=== PATIENT | male | born 1995 | race Caucasian/White ===

== ENCOUNTER 2018-06-06 12:08 | Emergency (ER) | payer BC ==
[2018-06-06 12:40] VITALS: BP 138/90; PULSE 80; O2SAT 99
--- NOTE | 2018-06-06 12:47 | ERPHSYRPT ---
- History of Present Illness Time Seen by Provider: 06/06/18 12:41 Source: patient Exam Limitations: no limitations Patient Subjective Stated Complaint: alert and oriented with no difficulty walking to the room. able to get undressed with no difficulty. states for the past 1 month he has had neck upper back, lower back. no specific c/o has had numerous testing from several hospitals that has been negative. seen at [facility] yesterday for the same. no injuries. Triage Nursing Assessment: alert and oriented with no difficulty walking to the room. able to get undressed with no difficulty. states for the past 1 month he has had neck upper back, lower back. no specific c/o has had numerous testing from several hospitals that has been negative. seen at [facility] yesterday for the same. no injuries. Physician History: 23-year-old white male previously healthy he arrives with complaint of pain on the left side of his head pain in his neck pain in his lower back which is somewhat vague uses been going on for approximately 4 weeks he states that [facility] at [facility] last time at [place] was yesterday. He states that he has had some vague pain he states that he was initially seen by [facility] and the for neck pain he states he had an x-ray of his neck pain which he states that he was told there were no acute changes he states he was referred to [facility] who did an extensive workup including CTs. He states he has been seen several times at [facility] and told that they think that he has some anxiety. 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 Is not having any problems moving patient has no fever he is not short of breath no chest pain. He has no focal symptoms other than pain on his left side of his body. He has been placed on Ativan 2 times he filled 15 1 mg tablets on May 14, 2018 he filled another 30 tablets on May 23, 2018. He states that after being seen yesterday at [facility] and [place] he was placed on Norflex. Patient denies suicidal or homicidal ideation Past medical history is negative. Past surgical history is negative. Social history patient denies tobacco alcohol or illicit drug use. He does state that he has used marijuana in the past. Timing/Duration: other (symptoms for a month) Severity: moderate Modifying Factors: Improves With: other (patient is on Ativan at home, recently has been placed on Norflex) Associated Symptoms: other (pain on left side of head and face pain on the left side of neck pain in his back (low back) for one month), No nausea, No vomiting , No abdominal pain, No shortness of breath, No heartburn, No diaphoresis, No cough, No chills, No chest pain, No fever, No headaches, No loss of appetite, No malaise, No rash, No syncope, No seizure, No weakness Immunizations Up to Date: Yes - Review of Systems Constitutional: No Fever, No Chills Eyes: No Symptoms Ears, Nose, & Throat: No Symptoms Respiratory: No Cough, No Dyspnea Cardiac: No Chest Pain, No Edema, No Syncope Abdominal/Gastrointestinal: No Abdominal Pain, No Nausea, No Vomiting, No Diarrhea Genitourinary Symptoms: No Dysuria Musculoskeletal: Back Pain (low back pain left-sided), Neck Pain (Left-sided neck pain) Skin: No Rash Neurological: Other (pain on left side of head and face), No Dizziness, No Focal Weakness, No Gait Changes, No Headache, No Irritability, No Lethargy, No Paralysis, No Parasthesia, No Seizure, No Sensory Changes, No Speech Changes, No Tics, No Tremors, No Vertigo Psychological: No Symptoms Endocrine: No Symptoms All Other Systems: Reviewed and Negative - Past Medical History Pertinent Past Medical History: Yes Neurological History: No Pertinent History ENT History: No Pertinent History Cardiac History: No Pertinent History Respiratory History: No Pertinent History Endocrine Medical History: No Pertinent History Musculoskeletal History: No Pertinent History GI Medical History: No Pertinent History History: No Pertinent History Psycho-Social History: Anxiety Male Reproductive Disorders: No Pertinent History - Past Surgical History Past Surgical History: No Neuro Surgical History: No Pertinent History Cardiac: No Pertinent History Respiratory: No Pertinent History Gastrointestinal: No Pertinent History Genitourinary: No Pertinent History Musculoskeletal: No Pertinent History Male Surgical History: No Pertinent History - Social History Smoking Status: Never smoker Exposure to second hand smoke: No Drug Use: marijuana Patient Lives Alone: No - Nursing Vital Signs Nursing Vital Signs: Initial Vital Signs Temperature 97.5 F 06/06/18 12:27 Pulse Rate 80 04/25/19 12:27 Respiratory Rate 18 06/06/18 12:27 Blood Pressure 138/90 06/06/18 12:27 O2 Sat by Pulse Oximetry 99 06/06/18 12:27 Pain Scale Pain Intensity 4 - Physical Exam General Appearance: no apparent distress, alert Eye Exam: PERRL/EOMI, eyes nml inspection Ears, Nose, Throat Exam: normal ENT inspection, TMs normal, pharynx normal, moist mucous membranes Neck Exam: normal inspection, non-tender, supple, full range of motion Respiratory Exam: normal breath sounds, lungs clear, No respiratory distress Cardiovascular Exam: regular rate/rhythm, normal heart sounds, normal peripheral pulses, capillary refill <2 sec Gastrointestinal/Abdomen Exam: soft, normal bowel sounds, No tenderness, No mass Back Exam: normal inspection, normal range of motion, No CVA tenderness, No vertebral tenderness Extremity Exam: normal inspection, normal range of motion, pelvis stable Neurologic Exam: alert, oriented x 3, cooperative, 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, normal mood/affect, nml cerebellar function, nml station & gait, sensation nml, other (patient is alert, oriented 3, cranial nerves II through XII intact, speech normal, no facial droop, normal finger to nose, services executive equal 5 over 5, sensation intact to all extremities, full range of motion all extremities, GCS equal 15), No motor deficits Skin Exam: normal color, warm, dry, No rash Lymphatic Exam: No adenopathy SpO2 Interpretation: normal (99%) SpO2: 99 - Course Nursing assessment & vital signs reviewed: Yes - Progress Progress: improved Progress Note: 06/06/18 12:48 23-year-old white male who arrives with complaints of 4 weeks of pain on the left side of his head left neck, left lower back symptoms going on for 4 weeks. He has been seen by multiple physicians and multiple facilities for the same he states he has been seen at [facility] in the for neck pain he states that he was then sent to [facility] which checked his heart out apparently did a CT possibly of his chest and abdomen. He states that he was also seen multiple times by [facility] and [place] he was told he had anxiety he was apparently placed on Ativan by a physician in [place]. He states that he was placed on Norflex yesterday by [facility]. On physical examination patient is alert oriented 3 he has not any acute distress speech is normal he has no facial droops cranial nerves II through XII are intact he has services executive equal 5 over 5 normal finger to nose no pronator drift. Full range of motion to all extremities sensation intact to all extremities. GCS equals 15. Patient denies suicidal or homicidal ideation he does state that he has been through some stressful times recently. I have sent away to [facility] for records at this point in time I really do not see any medications at to the patient. I might consider nonsteroidal anti-inflammatory medications. . 06/06/18 13:00 I have reviewed multiple visits that the patient has seen at [facility]. The patient has been diagnosed as having anxiety and he is already on Ativan. He was yesterday placed on Norflex. I cannot at this point in time find any new tests which I feel will help this patient. I do feel that the patient needs to have a primary care physician which can help him manage his complaints. Will have patient consider Advil and Tylenol in addition to his Norflex. He is already on Ativan. 06/06/18 13:08 I went and talked to the patient after I reviewed his recent tests. He states that he has an appointment with a doctor and [facility] tomorrow he states he is not sure who it is but his mother works there. Patient appears to be in no acute distress at this time will discharge patient. - Departure Departure Disposition: Home Clinical Impression: Neck pain, Face pain Chronic pain Qualifiers: Chronic pain type: chronic pain syndrome Qualified Code(s): G89.4 - Chronic pain syndrome Condition: Fair Critical Care Time: No Referrals: Provider,Unknown [Primary Care Provider] - Additional Instructions: Return home. Ativan as previously prescribed to you as directed. Norflex which has been sent prescribed to you yesterday as prescribed. Tylenol every 4 hours or Motrin every 6 hours as needed for pain. Follow-up with your family doctor.List) keep your appointment with your physician tomorrow which you have already scheduled. Return for acute distress or for severe symptoms.
== END 2018-06-06 13:19 | disposition home or self-care (01) ==
LOC: ED 12:08
DX: G50.1 Atypical facial pain (principal); F41.9 Anxiety disorder, unspecified
CPT/HCPCS: 99283